=== PATIENT | female | born 1995 | race African-American/Black ===

== ENCOUNTER 2019-12-27 18:49 | Emergency (ER) | payer SELFPAY ==
[2019-12-27] MEDS ORDERED: cefTRIAXone\\ROCEPHIN 1 GM VIAL ONE (19:27)
[2019-12-27] MEDS ORDERED: Lidocaine 1% PF 5 ML VIAL ONE (19:28)
[2019-12-27] MEDS ORDERED: Dexamethasone 10 MG/ML VIAL ONE (19:30)
== END 2019-12-27 20:10 | disposition home or self-care (01) ==
LOC: ERS 18:49
DX: J36 Peritonsillar abscess (principal); F41.9 Anxiety disorder, unspecified; F32.9 Major depressive disorder, single episode, unspecified
CPT/HCPCS: 96372; 99283; J0696; J1100

== ENCOUNTER 2020-06-18 19:00 | Outpatient (CLI) | payer BC | END 2020-06-18 19:01 | disposition home or self-care (01) | LOC: SLEEPLAB 19:00 | PROVIDERS: ATTEND Student in an Organized Health Care Education/Training Program | DX: G47.33 Obstructive sleep apnea (adult) (pediatric) (principal); R53.83 Other fatigue; R40.0 Somnolence; R09.89 Other specified symptoms and signs involving the circulatory and respiratory systems; E66.9 Obesity, unspecified; K21.9 Gastro-esophageal reflux disease without esophagitis; R06.83 Snoring; Z68.43 Body mass index [BMI] 50.0-59.9, adult | CPT/HCPCS: 95811 ==

== ENCOUNTER 2020-09-04 07:44 | Emergency (ER) | payer BC ==
[2020-09-04] MEDS ORDERED: Ketorolac Tromethamine 30 MG/ML VIAL ONE (08:58)
[2020-09-04 09:31] LABS: Anion Gap 16 mmol/L (10-20); BUN (Urea Nitrogen) 10 mg/dL (7.0-18.7); Calc. Creatinine Clearance 0 mL/min (70-130); Calcium 9.8 mg/dL (7.8-10.44); Carbon Dioxide 23 mmol/L (22-29); Chloride 106 mmol/L (98-107); Glucose 108 mg/dL (70-105); Potassium 4.5 mmol/L (3.5-5.1); Sodium 140 mmol/L (136-145)
== END 2020-09-04 09:47 | disposition home or self-care (01) ==
LOC: ERS 07:44
DX: M79.672 Pain in left foot (principal); I10 Essential (primary) hypertension; Z79.899 Other long term (current) drug therapy
CPT/HCPCS: 36415; 80048; 96372; J1885